=== PATIENT | male | born 1950 | race Caucasian/White ===

== ENCOUNTER 2016-11-29 17:31 | Emergency (ER) | payer MEDICARE ==
[2016-11-29 17:40] VITALS: BP 180/70; PULSE 114; RESP 18; TEMP 97.8; O2SAT 98
[2016-11-29] MEDS ORDERED: Acetaminophen-Codeine 300/30 mg Tab PO STA (18:09)
--- NOTE | 2016-11-29 18:42 | C.PDOC ---
History Of Present Illness 66 y/o male presents to the ED for evaluation of right upper gum and tooth pain which began around 2 days ago. Patient notes right cheek swelling today and presents to the ED for further evaluation. He denies fever, chills. Time Seen by Provider: 11/29/16 17:47 Chief Complaint (Nursing): Dental Pain History Per: Patient History/Exam Limitations: no limitations Onset/Duration Of Symptoms: Days (2) Current Symptoms Are (Timing): Still Present Quality: Positive for: "Pain" Additional History Per: Patient Past Medical History Reviewed: Historical Data, Nursing Documentation, Vital Signs Vital Signs: Last Vital Signs Temp 97.8 F 11/29/16 17:37 Pulse 114 H 11/29/16 17:37 Resp 18 11/29/16 17:37 BP 180/70 H 11/29/16 17:37 Pulse Ox 98 11/29/16 18:59 - Medical History PMH: HTN Surgical History: No Surg Hx Family History: States: Unknown Family Hx - Social History Hx Tobacco Use: Yes Hx Alcohol Use: No Hx Substance Use: No - Immunization History Hx Tetanus Toxoid Vaccination: No Hx Influenza Vaccination: No Hx Pneumococcal Vaccination: No Review Of Systems Constitutional: Negative for: Fever, Chills ENT: Positive for: Mouth Pain (right upper gum and tooth ) Physical Exam - Physical Exam Appears: Non-toxic, No Acute Distress Skin: Normal Color, Warm, Dry Head: Atraumatic, Normacephalic, Swelling (right cheek ) Eye(s): bilateral: Normal Inspection Oral Mucosa: Moist Teeth: No Caries Gingiva: Swelling Neck: Supple Extremity: Normal ROM, Capillary Refill (less than 2 seconds ) Neurological/Psych: Normal Speech, Normal Cognition Gait: Steady ED Course And Treatment O2 Sat by Pulse Oximetry: 98 (on RA ) Pulse Ox Interpretation: Normal Progress Note: Patient received Tylenol/Codeine PO and Penicillin PO. On reassessment, patient is resting comfortably, showing no signs of distress and is stable for discharge. Pt is advised to f/u with dental care within 1-2 days for further evaluation. Disposition - Disposition Referrals: [facility] [Outside] [facility] [Outside] [facility] [Outside] Disposition: HOME/ ROUTINE Disposition Time: 18:23 Condition: STABLE Additional Instructions: Follow up with PMD within 1-2 days. Return to ED if feel worse. Prescriptions: Penicillin VK [Pen-Vee K] 500 mg PO Q6 #28 tab Acetaminophen with Codeine [Tylenol with Codeine No. 3 300 mg-30 mg] 1 tab PO .Q4-6H #30 tab Instructions: Toothache (ED) Forms: [employer] (Azeri) - Clinical Impression Clinical Impression: Toothache - PA / TECHNICAL PROFESSIONAL / Resident Statement MD/DO has reviewed & agrees with the documentation as recorded. - Scribe Statement The provider has reviewed the documentation as recorded by the Scribe (Aishwarya Newman) All medical record entries made by the Scribe were at my direction and personally dictated by me. I have reviewed the chart and agree that the record accurately reflects my personal performance of the history, physical exam, medical decision making, and the department course for this patient. I have also personally directed, reviewed, and agree with the discharge instructions and disposition.
[2016-11-29] MEDS ORDERED: Acetaminophen-Codeine 300/30 mg Tab PO ONE (18:47)
== END 2016-11-29 18:52 | disposition home or self-care (01) ==
LOC: C.ER 17:31
DX: K08.89 Other specified disorders of teeth and supporting structures (principal); Z72.0 Tobacco use

== ENCOUNTER 2017-09-07 12:38 | Emergency (ER) | payer MEDICARE ==
[2017-09-07 13:06] VITALS: RESP 18; TEMP 98.8
--- NOTE | 2017-09-07 13:23 | RAD ---
PROCEDURE: Radiographs of the Left Shoulder HISTORY: Pain for 3 days COMPARISON: No prior. 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 SOFT TISSUES: Normal. OTHER FINDINGS: None. IMPRESSION: No evidence of acute displaced fracture nor dislocation. 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
--- NOTE | 2017-09-07 13:50 | C.PDOC ---
History Of Present Illness 67 year old male, PMH of hypertension, presents to the ED with complaints of left shoulder pain that began 3 days ago. He describes pain as aching and present more to the back of his shoulder, and states pain is worsened with movement. He denies any strenuous use, or falls and has not taken anything to alleviate the pain. Patient also denies any tingling, numbness, chest pain, or shortness of breath. Patient has no other complaints at this moment. Time Seen by Provider: 09/07/17 13:09 Chief Complaint (Nursing): Upper Extremity Problem/Injury History Per: Patient History/Exam Limitations: no limitations Onset/Duration Of Symptoms: Days Current Symptoms Are (Timing): Still Present Past Medical History Reviewed: Historical Data, Nursing Documentation, Vital Signs Vital Signs: Last Vital Signs Temp 98.8 F 09/07/17 13:02 Pulse 93 H 09/07/17 13:56 Resp 18 09/07/17 13:56 BP 173/80 H 09/07/17 13:56 Pulse Ox 96 09/07/17 14:05 - Medical History PMH: HTN Surgical History: No Surg Hx Family History: States: No Known Family Hx, Unknown Family Hx - Social History Hx Tobacco Use: Yes Hx Alcohol Use: No Hx Substance Use: No - Immunization History Hx Tetanus Toxoid Vaccination: No Hx Influenza Vaccination: No Hx Pneumococcal Vaccination: No Review Of Systems Except As Marked, All Systems Reviewed And Found Negative. Cardiovascular: Negative for: Chest Pain Respiratory: Negative for: Shortness of Breath Musculoskeletal: Positive for: Shoulder Pain Neurological: Negative for: Weakness, Numbness, Headache, Dizziness Physical Exam - Physical Exam Appears: Non-toxic, No Acute Distress Skin: Normal Color, Warm, Dry, No Pale, No Ecchymosis Head: Atraumatic, Normacephalic Eye(s): bilateral: Normal Inspection, EOMI Neck: Normal, Normal ROM, Supple Chest: Symmetrical Cardiovascular: Rhythm Regular Respiratory: Normal Breath Sounds, No Accessory Muscle Use, No Rhonchi, No Wheezing Extremity: Normal ROM (Limited ROM with abduction of left shoulder ), Tenderness (To the left AC joint. 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 SOFT TISSUES: Normal. OTHER FINDINGS: None. IMPRESSION: No evidence of acute displaced fracture nor dislocation. 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 On re-evaluation patient reports pain is improving and feeling better. I gave copy of xray report to the patient. Recommend rest and analgesics, Rx was given. Patient stable for discharge and instructed to follow up with PMD. Disposition Counseled Patient/Family Regarding: Studies Performed, Diagnosis, Need For Followup, Rx Given - Disposition Referrals: Rod Ceja MD [Staff Provider] - Disposition: HOME/ ROUTINE Disposition Time: 13:55 Condition: GOOD Additional Instructions: Your xray shows arthritic changes of shoulder joint, no fracture. Please apply ice to area 15 minutes three times a day. Take Motrin as needed for pain every 6 hours, with food to not upset stomach. Follow up with orthopedic if pain persists over one week. Fried radiografa muestra cambios artrticos en la articulacin del hombro, sin fractura. Por favor aplique hielo en el [facility] 15 minutos thiago veces al da. [place] Motrin cuando sea necesario para el dolor cada 6 horas, con alimentos para no alterar el estmago. Jai un seguimiento con ortopedia si el dolor persiste keven reema semana. Regrese al departamento de emergencia en cualquier momento si los sntomas persisten o empeoran. Prescriptions: Ibuprofen [Motrin] 600 mg PO Q12 #30 tab Instructions: Shoulder Pain (DC) Forms: [employer] (Vincentian) Print Language: CROATIAN - POA Present On Arrival: None - Clinical Impression Clinical Impression: Shoulder arthralgia - PA / GLOBAL CONSUMER SECTOR VICE PRESIDENT / Resident Statement MD/DO has reviewed & agrees with the documentation as recorded. - Scribe Statement The provider has reviewed the documentation as recorded by the Leonelibe Ely Gay Provider Attestation: All medical record entries made by the Leonelibmarcello were at my direction and personally dictated by me. I have reviewed the chart and agree that the record accurately reflects my personal performance of the history, physical exam, medical decision making, and the department course for this patient. I have also personally directed, reviewed, and agree with the discharge instructions and disposition.
[2017-09-07 13:56] VITALS: BP 173/80; PULSE 93
[2017-09-07 13:58] VITALS: O2SAT 96
--- NOTE | 2017-09-10 17:17 | CARD ---
APPROVED REPORT EKG Measurement Heart [id number] <Conclusion> Normal sinus rhythm Minimal voltage criteria for LVH, may be normal variant Borderline ECG
== END 2017-09-07 14:01 | disposition home or self-care (01) ==
LOC: C.ER 12:38
DX: M25.512 Pain in left shoulder (principal)
CPT/HCPCS: 73030; 96372; 99284; J1885

== ENCOUNTER 2018-09-23 16:39 | Emergency (ER) | payer MEDICARE ==
[2018-09-23] MEDS ORDERED: Sodium Chloride 0.9% 1,000 ML IV ONE (18:22)
--- NOTE | 2018-09-23 18:28 | C.PDOC ---
History Of Present Illness PGY-[address] Singh Patient is 68 yo female with pmhx of HTN, presents to ED for upper abdominal pain, diarrhea for the past 3 days. States he ate hot dogs before symptoms started, admits to 4 episodes of non bloody, clear vomiting today. Patient states had subjective fever in the first day of symptoms, however does not feel warm anymore. states diarrhea has improved but continues to have watery non bloody stools. Denies fever, chills, chest pain, sob, back pain, urinary symptoms. Denies sick contacts, recent travel outside of [place], denies recent sickness. Time Seen by Provider: 09/23/18 17:54 Chief Complaint (Nursing): Abdominal Pain History/Exam Limitations: no limitations Onset/Duration Of Symptoms: Days Current Symptoms Are (Timing): Still Present Context: Food Location Of Pain/Discomfort: RUQ, Epigastric, LUQ Radiation Of Pain To:: None Quality Of Discomfort: Pressure Associated Symptoms: Nausea, Vomiting, Diarrhea. denies: Fever, Chills, Loss Of Appetite, Back Pain, Chest Pain, Constipation, Urinary Symptoms Exacerbating Factors: None Alleviating Factors: None Last Bowel Movement: Today Recent travel outside of the [place]: No Additional History Per: Family (daughter at bedside ) Past Medical History Vital Signs: Last Vital Signs Temp 98.0 F 09/23/18 16:55 Pulse 76 09/23/18 16:55 Resp 18 09/23/18 16:55 BP 164/76 H 09/23/18 16:55 Pulse Ox 98 09/23/18 16:55 Primary Care Provider: Rod Ceja - Medical History PMH: HTN Surgical History: No Surg Hx Family History: States: Unknown Family Hx - Social History Hx Tobacco Use: Yes (5-7 cigarettes ) Hx Alcohol Use: No Hx Substance Use: No - Immunization History Hx Tetanus Toxoid Vaccination: No Hx Influenza Vaccination: No Hx Pneumococcal Vaccination: No Review Of Systems Constitutional: Positive for: Fever, Chills. Negative for: Sweats, Weakness, Malaise Respiratory: Negative for: Shortness of Breath Gastrointestinal: Positive for: Nausea, Vomiting, Abdominal Pain, Diarrhea. Negative for: Constipation, Melena, Hematochezia, Hematemesis Genitourinary: Negative for: Dysuria, Frequency Musculoskeletal: Negative for: Neck Pain, Shoulder Pain, Back Pain Neurological: Negative for: Weakness, Numbness Psych: Negative for: Anxiety, Depression Physical Exam - Physical Exam Appears: Non-toxic, No Acute Distress Skin: Normal Color Head: Atraumatic, Normacephalic Eye(s): bilateral: Normal Inspection, EOMI Neck: Normal ROM Respiratory: Normal Breath Sounds Gastrointestinal/Abdominal: Normal Exam, Bowel Sounds, Soft, Tenderness (mild tenderness to deep palpation epigastric area ), No Distention, No Guarding, No Ascites Extremity: Normal ROM, No Tenderness Neurological/Psych: Oriented x3, Normal Speech, Normal Cognition, Normal Cranial Nerves, Normal Motor, Normal Sensation ED Course And Treatment - Laboratory Results Result Diagrams: 09/23/18 18:45 09/23/18 18:45 O2 Sat by Pulse Oximetry: 98 Medical Decision Making Medical Decision Makin yo male comes to Ed for abdominal pain, nausea, vomiting, diarrhea for 3 days, states had hot dogs before symptoms started, possible Gastroenteritis vs colitis. - labs - CBC, CMP - Obstructive series Xray - 1L NS - Protonix 40mg IVP x1 - Zofran 4mg IVP x 1 19:45- Obstructive series within normal limits, pending official report. Lab work wnl. Patient re-evaluated states feeling better, feels warm, temperature checked, 98 F. 20:00 - Patient stable to be d/c home. Patient to continue taking fluids. Prescription for zofran PRN provided for nausea. Patient to follow up with PMD and to return to ED if symptoms worsen or return Plan d/w Dr Francisco Barnes, PGY-1 Disposition Counseled Patient/Family Regarding: Studies Performed, Rx Given - Disposition Referrals: Rod Ceja MD [Staff Provider] - Disposition: HOME/ ROUTINE Disposition Time: 20:03 Condition: STABLE Additional Instructions: TERESE VERA, thank you for letting us take care of you today. Your provider was Adalberto Singh MD and you were treated for DIARRHEA. The emergency medical care you received today was directed at your acute symptoms. If you were prescribed any medication, please fill it and take as directed. It may take several days for your symptoms to resolve. Return to the Emergency Department if your symptoms worsen, do not improve, or if you have any other problems. Patient to continue drinking clear fluids, avoid soda or juices. Patient can take medication prescribed for nausea as needed if feeling nauseous. Patient can continue taking medications for gastritis. Please contact your doctor or call one of the physicians/clinics you have been referred to that are listed on the Patient Visit Information form that is in cluded in your discharge packet. Bring any paperwork you were given at discharge with you along with any medications you are taking to your follow up visit. Our treatment cannot replace ongoing medical care by a primary care provider outside of the emergency department. Thank you for allowing the Critical access hospital team to be part of your care today. TERESE VERA, hugh por dejarnos cuidar de ti hoy. Fried proveedor fue Adalberto Singh MD y sera recibi tratamiento para la DIARREA. La atencin mdica de emergencia que recibi hoy se dirigi a jacy sntomas agudos. Si le recetaron algn medicamento, llnelo y tmelo segn las indicaciones. Los sntomas pueden tardar varios lou en resolverse. Regrese al Departamento de Emergencias si jacy sntomas empeoran, no mejoran o si tiene otros problemas. Paciente para seguir bebiendo lquidos ana, evite los refrescos o jugos. El paciente puede sarika los medicamentos recetados para las nuseas segn sea necesario si siente nuseas. El paciente puede continuar tomando medicamentos para la gastritis. Comunquese con fried mdico o llame a jayson de los mdicos / clnicas a los que starr sido referido que figuran en el formulario de Informacin de visita al paciente que se incluye en fried paquete de danny. Lleve todos los documentos que recibi al momento del danny junto con los medicamentos que est tomando para fried visita de seguimiento. Nuestro tratamiento no puede reemplazar la atencin mdica continua por parte de un proveedor de atencin primaria fuera del departamento de emergencias. Hugh por permitir que el equipo de [facility] [employer] sea parte de fried atencin hoy. Prescriptions: Ondansetron ODT [Zofran ODT] 4 mg PO Q8 PRN #5 odt PRN Reason: Nausea/Vomiting Instructions: Viral Gastroenteritis, Adult (DC) Forms: [employer] (Tanzanian) Print Language: KHMER - Clinical Impression Clinical Impression: Abdominal pain, Gastroenteritis
[2018-09-23] MEDS ORDERED: Sodium Chloride 0.9% 1,000 ML ONE (18:36)
[2018-09-23 19:33] LABS: BASO % 0.3 % (0.0-2.0); EOS % 0.1 % (0.0-4.0); HEMOGLOBIN 14.4 g/dL (12.0-18.0); LYMPH # 1.1 K/uL (1.0-4.3); LYMPH % 12.6 % (20.0-40.0); MEAN CELL VOLUME 87.6 fL (80.0-94.0); MEAN CORPUSCULAR HEMOGLOBIN 29.8 pg (27.0-31.0); MEAN PLATELET VOLUME 9.2 fL (7.2-11.7); MONO # 0.6 K/uL (0.0-0.8); MONO % 6.7 % (0.0-10.0); NEUT # 7.1 K/uL (1.8-7.0); NEUT % 80.3 % (50.0-75.0); RBC 4.84 Mil/uL (4.40-5.90); RED CELL DISTRIBUTION WIDTH 13.2 % (11.5-14.5); WHITE BLOOD COUNT 8.8 K/uL (4.8-10.8)
[2018-09-23 19:49] LABS: ALB/GLOB RATIO 1.4 (1.0-2.1); ALT/SGPT 63 U/L (21-72); AST/SGOT 34 U/L (17-59); BLOOD UREA NITROGEN 10 mg/dL (9-20); CALCIUM 9.2 mg/dl (8.6-10.4); GFR NON-AFRICAN AMERICAN > 60
[2018-09-23 20:39] VITALS: BP 159/79; PULSE 84; RESP 20; TEMP 97.7; O2SAT 95
--- NOTE | 2018-09-24 07:28 | RAD ---
Abdomen 6 views HISTORY: Abdominal pain. COMPARISON: None available. FINDINGS: Hyperinflation suggestive for COPD and or emphysematous changes. Biapical pleural thickening with upper lobe granulomatous changes. Focal reticulation with scarring seen within the upper lung zones bilaterally as well as at the right lung base. Right hilar prominence. Mild nodularity at the bilateral lung bases. Mild patchy increased markings in the right infrahilar region. Heart size within normal limits. Degenerative changes in the spine Moderate fecal retention in the colon. Impression: Moderate fecal retention in the colon. If pain persists, consider correlation with CT scan.
== END 2018-09-23 20:40 | disposition home or self-care (01) ==
LOC: C.ER 16:39
DX: K52.9 Noninfective gastroenteritis and colitis, unspecified (principal); R10.13 Epigastric pain
CPT/HCPCS: 74022; 80053; 85025; 96361; 96374; 96375; 99284; C9113; J2405; J7030